=== PATIENT | female | born 1985 | race Caucasian/White ===

== ENCOUNTER → 2017-10-20 | Outpatient (CLI) | payer MEDICAID ==
[2017-10-20 11:54] LABS: CORONAVIRUS 229E NOT DETECTED (NOT DETECTE); CORONAVIRUS HKU 1 NOT DETECTED (NOT DETECTE); CORONAVIRUS NL63 NOT DETECTED (NOT DETECTE); CORONAVIRUS OC43 NOT DETECTED (NOT DETECTE)
[2017-10-20 13:12] LABS: RHINOVIRUS/ENTEROVIRUS DETECTED (NOT DETECTE)
== END ==
LOC: LAB 11:51
PROVIDERS: Nurse Practitioner Family
DX: R50.9 Fever, unspecified (principal)